=== PATIENT | male | born 1995 | race Caucasian/White ===

== ENCOUNTER 2020-06-17 13:08 | Emergency (ER) | payer BC ==
[~2020-06-17] VITALS: Ht 190.5 cm; Wt 118.2 kg
[2020-06-17] MEDS ORDERED: CYCLOBENZ5 MG PO (15:34)
[2020-06-17 15:35] LABS: HEMATOCRIT 47.8 % (42.0-52.0); HEMOGLOBIN 16.4 g/dL (13.5-18.0); MEAN CELL VOLUME 90 fl (78-100); MEAN CORPUSCULAR HEMOGLOBIN 31 pg (27-31); MEAN CORPUSCULAR HGB CONC 34 g/dL (33-37); MEAN PLATELET VOLUME 9.6 fl (7.4-10.4); PLATELET COUNT 260 K/mm3 (130-400); RED BLOOD COUNT 5.29 M/mm3 (4.20-5.60); RED CELL DISTRIBUTION WIDTH 12.3 % (11.5-14.5); WHITE BLOOD COUNT 10.7 K/mm3 (4.8-10.8)
[2020-06-17 15:46] LABS: ALBUMIN 4.6 g/dL (3.5-5.0); POTASSIUM 3.4 mmol/L (3.5-5.1)
[2020-06-17 15:47] LABS: CALCIUM 9.3 mg/dL (8.3-10.5)
[2020-06-17 15:49] LABS: TOTAL PROTEIN 7.4 g/dL (6.4-8.3)
[2020-06-17 16:02] LABS: LYMPHOCYTE 30 % (20-51); NEUTROPHILS 55 % (42-75)
[2020-06-17 16:03] LABS: MONOCYTE 10 % (3-10)
[2020-06-17] MEDS ORDERED: CYPROHEPTADINE H4 M1 PO (19:08)
[2020-06-17 19:34] VITALS: BP 154/103
[2020-06-17] MEDS ORDERED: OXAYDO7.5 MG PO (20:30)
[2020-06-17] MEDS ORDERED: PREDNISONE20 M1 PO (20:30)
[2020-06-17] MEDS ORDERED: TRAMADOL 50 MG TAB PO (20:30)
[2020-06-17] MEDS ORDERED: CYMBALTA30 M1 PO (20:31)
[2020-06-17] MEDS ORDERED: COLACE100 M1 PO (20:31)
== END 2020-06-17 19:34 | disposition home or self-care (01) ==
LOC: ED 13:08
PROVIDERS: Nurse Practitioner
DX: R00.0 Tachycardia, unspecified (principal); G25.79 Other drug induced movement disorders; F17.210 Nicotine dependence, cigarettes, uncomplicated
CPT/HCPCS: J2060; J7030

== ENCOUNTER 2021-01-11 12:59 | Outpatient (RCR) | payer BC ==
[~2021-01-11 12:59] MED LIST: COLACE100 M1 PO; CYCLOBENZ5 MG PO; CYMBALTA30 M1 PO; CYPROHEPTADINE H4 M1 PO; OXAYDO7.5 MG PO; PREDNISONE20 M1 PO; TRAMADOL 50 MG TAB PO
== END 2021-01-11 17:00 | disposition home or self-care (01) ==
LOC: PT 12:59
DX: M48.061 Spinal stenosis, lumbar region without neurogenic claudication (principal); M43.16 Spondylolisthesis, lumbar region; M54.16 Radiculopathy, lumbar region; Z98.1 Arthrodesis status

== ENCOUNTER → 2022-10-23 | Outpatient (CLI) | payer BC ==
[2022-10-23 08:54] LABS: BASO # 0.03 K/mm3 (0.02-0.10); EOS % 5.1 % (0.0-4.0); HEMATOCRIT 48.4 % (42.0-52.0); HEMOGLOBIN 16.5 g/dL (13.5-18.0); LYMPH# 2.28 K/mm3 (1.50-4.00); MEAN CELL VOLUME 93 fl (78-100); MEAN CORPUSCULAR HEMOGLOBIN 32 pg (27-31); MEAN CORPUSCULAR HGB CONC 34 g/dL (33-37); MEAN PLATELET VOLUME 9.5 fl (7.4-10.4); MONO # 0.81 K/mm3 (0.20-0.80); NEU # 2.38 K/mm3 (1.40-6.50); PLATELET COUNT 217 K/mm3 (130-400); RED BLOOD COUNT 5.23 M/mm3 (4.20-5.60); RED CELL DISTRIBUTION WIDTH 11.5 % (11.5-14.5); WHITE BLOOD COUNT 5.9 K/mm3 (4.8-10.8)
[2022-10-23 08:58] LABS: POTASSIUM 4.1 mmol/L (3.5-5.1)
[2022-10-23 08:59] LABS: ALBUMIN 4.7 g/dL (3.5-5.0)
[2022-10-23 09:00] LABS: CALCIUM 9.6 mg/dL (8.3-10.5)
[2022-10-23 09:03] LABS: TOTAL BILIRUBIN 1.2 mg/dL (0.2-1.2)
== END ==
LOC: LAB 08:40
PROVIDERS: Physician Assistant
DX: Z00.00 Encounter for general adult medical examination without abnormal findings (principal); Z13.220 Encounter for screening for lipoid disorders; F90.9 Attention-deficit hyperactivity disorder, unspecified type; F41.9 Anxiety disorder, unspecified; F32.A Depression, unspecified; G62.9 Polyneuropathy, unspecified; M62.830 Muscle spasm of back; M48.062 Spinal stenosis, lumbar region with neurogenic claudication; Z23 Encounter for immunization; Z13.1 Encounter for screening for diabetes mellitus; Z13.29 Encounter for screening for other suspected endocrine disorder; I10 Essential (primary) hypertension; R74.01 Elevation of levels of liver transaminase levels

== ENCOUNTER → 2023-01-01 | Outpatient (CLI) | payer BC ==
[2023-01-01 12:40] LABS: POTASSIUM 4.3 mmol/L (3.5-5.1)
[2023-01-01 12:41] LABS: ALBUMIN 4.8 g/dL (3.5-5.0)
[2023-01-01 12:43] LABS: TOTAL PROTEIN 7.4 g/dL (6.4-8.3)
[2023-01-01 12:45] LABS: TOTAL BILIRUBIN 1.3 mg/dL (0.2-1.2)
== END ==
LOC: LAB 11:58
PROVIDERS: Physician Assistant
DX: M48.062 Spinal stenosis, lumbar region with neurogenic claudication (principal); E78.5 Hyperlipidemia, unspecified; R74.01 Elevation of levels of liver transaminase levels